=== PATIENT | female | born 1975 | race Caucasian/White ===

== ENCOUNTER 2022-09-25 16:28 | Emergency (ER) | payer OTHER ==
[2022-09-25 17:58] VITALS: RESP 18
[2022-09-25] MEDS ORDERED: ACETAMINOPHEN TAB 500 MG TAB PO STA (18:01)
[2022-09-25] MEDS ORDERED: ALBUTEROL NEBULIZED 2.5 MG/3 ML INHALATION STA ×2 (18:01→19:57)
[2022-09-25] MEDS ORDERED: methylPREDNISolone SOD SUCCI 125 MG/2 ML VIAL IM ONE (18:02)
--- NOTE | 2022-09-25 19:22 | XR ---
EXAMINATION TYPE: XR chest 2V DATE OF EXAM: 09/25/2022 COMPARISON: NONE HISTORY: Short of breath TECHNIQUE: 2 views FINDINGS: Heart and mediastinum are normal. Lungs are clear. Diaphragm is normal. Bony thorax is inta ct. IMPRESSION: Normal chest.
[2022-09-25 20:55] VITALS: BP 109/70; PULSE 87; TEMP 98.6
--- NOTE | 2022-09-25 21:09 | ED ---
URI HPI - General Chief Complaint: Upper Respiratory Infection Stated Complaint: Fever,Congestion Time Seen by Provider: 09/25/22 17:17 Source: patient Mode of arrival: wheelchair Limitations: no limitations - History of Present Illness Initial Comments: Patient is a 46-year-old female who presents to the emergency department with a chief complaint of fever. Patient reports fever, body aches, dry cough, congestion for the past 3 days. Denies recent sick contacts. Denies chest pain and shortness of breath. Patient has history of childhood asthma. - Related Data Previous Rx's Medication Instructions Recorded Albuterol Inhaler [Ventolin Hfa 1 puff INHALATION QID #8 gm 09/25/22 Inhaler] Fluticasone Nasal [place] [Flonase 2 spray EA NOSTRIL DAILY #16 gm 09/25/22 Nasal [place]] Allergies Allergy/AdvReac Type Severity Reaction Status Date / Time latex Allergy Rash/Hives Verified 09/25/22 16:53 Review of Systems ROS Statement: Those systems with pertinent positive or pertinent negative responses have been documented in the HPI. ROS Other: All systems not noted in ROS Statement are negative. Past Medical History Past Medical History: Asthma History of Any Multi-Drug Resistant Organisms: None Reported Past Surgical History: Cholecystectomy Past Psychological History: No Psychological Hx Reported Smoking Status: Never smoker Past Alcohol Use History: None Reported Past Drug Use History: Marijuana General Exam Limitations: no limitations General appearance: alert, in no apparent distress Head exam: Present: atraumatic, normocephalic, normal inspection Respiratory exam: Present: normal lung sounds bilaterally, wheezes. Absent: respiratory distress, rales, rhonchi, stridor Cardiovascular Exam: Present: regular rate, normal rhythm, normal heart sounds. Absent: systolic murmur, diastolic murmur, rubs, gallop, clicks Neurological exam: Present: alert, oriented X3, CN II-XII intact Psychiatric exam: Present: normal affect, normal mood Skin exam: Present: warm, dry, intact, normal color. Absent: rash Course Vital Signs 09/25/22 09/25/22 09/25/22 16:48 17:25 19:12 Temperature 101.4 F H 99.0 F Pulse Rate 88 85 Respiratory 16 18 18 Rate Blood Pressure 129/81 121/75 O2 Sat by Pulse 96 95 Oximetry 09/25/22 09/25/22 09/25/22 19:23 19:35 20:39 Temperature Pulse Rate 68 70 68 Respiratory Rate Blood Pressure O2 Sat by Pulse Oximetry 09/25/22 20:55 Temperature 98.6 F Pulse Rate 87 Respiratory 18 Rate Blood Pressure 109/70 O2 Sat by Pulse 98 Oximetry Medical Decision Making - Medical Decision Making This is a 46-year-old female presenting with upper respiratory symptoms. Patient well-appearing. No evidence of respiratory stress. No hypoxia. Patient does have wheezing. Febrile at 101.4 degrees Fahrenheit. Influenza A is detected. Patient given Tylenol, steroid, and multiple breathing treatments which improved wheezing. Fever resolved. Patient will be discharged with inhaler. Dr. Weiss is my attending. - Lab Data Lab Results 09/25/22 09/25/22 Range/Units 17:25 17:25 Coronavirus (PCR) Not Detected (Not Detectd) Influenza Type A RNA Detected H (Not Detectd) Influenza Type B (PCR) Not Detected (Not Detectd) Disposition Clinical Impression: Influenza Disposition: HOME SELF-CARE Condition: Good Instructions (If sedation given, give patient instructions): Upper Respiratory Infection (ED) Additional Instructions: Take medication as directed. Increase water intake. Return to the emergency department if you experience new, concerning, or worsening symptoms Prescriptions: Fluticasone Nasal [place] [Flonase Nasal [place]] 2 spray EA NOSTRIL DAILY #16 gm Albuterol Inhaler [Ventolin Hfa Inhaler] 1 puff INHALATION QID #8 gm Is patient prescribed a controlled substance at d/c from ED?: No Referrals: None,Stated [Primary Care Provider] - 1-2 days
== END 2022-09-25 21:24 | disposition home or self-care (01) ==
LOC: EC 16:28
DX: J11.1 Influenza due to unidentified influenza virus with other respiratory manifestations (principal); J45.909 Unspecified asthma, uncomplicated; F12.90 Cannabis use, unspecified, uncomplicated; Z91.040 Latex allergy status; Z20.822 Contact with and (suspected) exposure to COVID-19
CPT/HCPCS: 94640 ×2; 87502; 87635; 71046; 99284; 96372; J2930

== ENCOUNTER 2023-05-21 16:40 | Emergency (ER) | payer OTHER ==
[2023-05-21] MEDS ORDERED: MORPHINE SULFATE 4 MG/ML SYRINGE IVP STA (19:10)
[2023-05-21] MEDS ORDERED: methylPREDNISolone SOD SUCCI 125 MG/2 ML VIAL IV STA (19:48)
--- NOTE | 2023-05-21 20:17 | ED ---
General Adult HPI - General Chief complaint: Skin/Abscess/Foreign Body Stated complaint: lump on R side jaw Time Seen by Provider: 05/21/23 19:00 Source: patient Mode of arrival: ambulatory Limitations: no limitations - History of Present Illness Initial comments: 47-year-old female presenting with chief complaint of right-sided jaw pain and swelling. She states that when she woke up there was a small bump in the submandibular region and throughout the day the swelling and pain increased. Patient is having pain with swallowing but is still able to drink water. She is having no difficulty breathing. She states that the pain and swelling is also spreading up to her roman catholic. She states that she was febrile earlier with a temperature 100.8, she did take a Tylenol. - Related Data Previous Rx's Medication Instructions Recorded Albuterol Inhaler [Ventolin Hfa 1 puff INHALATION QID #8 gm 09/26/22 Inhaler] Fluticasone Nasal [place] [Flonase 2 spray EA NOSTRIL DAILY #16 gm 09/26/22 Nasal [place]] methylPREDNISolone Dose Pack 4 mg PO DIRECTED #21 tab 09/26/22 [Medrol Dose Pack] Clindamycin [Cleocin] 450 mg PO Q6H 10 Days #120 cap 05/21/23 Allergies Allergy/AdvReac Type Severity Reaction Status Date / Time latex Allergy Rash/Hives Verified 05/21/23 17:42 Review of Systems ROS Statement: Those systems with pertinent positive or pertinent negative responses have been documented in the HPI. ROS Other: All systems not noted in ROS Statement are negative. Past Medical History Past Medical History: Asthma History of Any Multi-Drug Resistant Organisms: None Reported Past Surgical History: Cholecystectomy Past Psychological History: No Psychological Hx Reported Smoking Status: Never smoker Past Alcohol Use History: None Reported Past Drug Use History: Marijuana General Exam Limitations: no limitations General appearance: alert, in no apparent distress Head exam: Present: atraumatic, normocephalic, normal inspection Eye exam: Present: normal appearance, EOMI Neck exam: Present: tenderness, lymphadenopathy. Absent: normal inspection Expanded Neck exam: Absent: midline deformity Respiratory exam: Present: wheezes. Absent: respiratory distress Cardiovascular Exam: Present: regular rate, normal rhythm, normal heart sounds. Absent: systolic murmur, diastolic murmur, rubs, gallop, clicks Neurological exam: Present: alert, oriented X3, CN II-XII intact Psychiatric exam: Present: normal affect, normal mood Skin exam: Present: warm, dry, intact, normal color. Absent: rash Course Vital Signs 05/21/23 05/21/23 05/21/23 17:39 18:19 19:00 Temperature 99.0 F 97.7 F Pulse Rate 81 78 75 Respiratory 20 22 20 Rate Blood Pressure 128/67 183/74 118/70 O2 Sat by Pulse 100 100 97 Oximetry 05/21/23 21:37 Temperature 98.9 F Pulse Rate 80 Respiratory 18 Rate Blood Pressure 127/67 O2 Sat by Pulse 97 Oximetry Medical Decision Making - Medical Decision Making Was pt. sent in by a medical professional or institution (, PA, SENIOR PL SQL DEVELOPER, urgent c are, hospital, or correction...) When possible be specific @ -No Did you speak to anyone other than the patient for history (EMS, parent, family, police, friend...)? What history was obtained from this source @ -No Did you review nursing and triage notes (agree or disagree)? Why? @ -I reviewed and agree with nursing and triage notes Were old charts reviewed (outside hosp., previous admission, EMS record, old EKG, old radiological studies, urgent care reports/EKG's, correction records)? Report findings @ -No old charts were reviewed Differential Diagnosis (chest pain, altered mental status, abdominal pain women, abdominal pain men, vaginal bleeding, weakness, fever, dyspnea, syncope, headache, dizziness, GI bleed, back pain, seizure, CVA, palpatations, mental health, musculoskeletal)? @ -Differential includes parotiditis, abscess, lymph node, Chip angina, dental abscess, this is not an all inclusive list EKG interpreted by me (3pts min.). @ -As above X-rays interpreted by me (1pt min.). @ -None done CT interpreted by me (1pt min.). @ -CT shows right parotiditis, no obstructing Stensen's duct stone visualized U/S interpreted by me (1pt. min.). @ -None done What testing was considered but not performed or refused? (CT, X-rays, U/S, labs)? Why? @ -None What meds were considered but not given or refused? Why? @ -None Did you discuss the management of the patient with other professionals (professionals i.e. , PA, SENIOR PL SQL DEVELOPER, lab, RT, psych nurse, oncology social work, magnetic tape typewriter operator, teacher, operations officer afloat, skilled nursing case manager)? Give summary @ -No Was smoking cessation discussed for >3mins.? @ -No Was critical care preformed (if so, how long)? @ -No Were there social determinants of health that impacted care today? How? (Homelessness, low income, unemployed, alcoholism, drug addiction, transportation, low edu. Level, literacy, decrease access to med. care, alf, rehab)? @ -No Was there de-escalation of care discussed even if they declined (Discuss DNR or withdrawal of care, Hospice)? DNR status @ -No What co-morbidities impacted this encounter? (DM, HTN, Smoking, COPD, CAD, Ca ncer, CVA, ARF, Chemo, Hep., AIDS, mental health diagnosis, sleep apnea, morbid obesity)? @ -None Was patient admitted / discharged? Hospital course, mention meds given and route, prescriptions, significant lab abnormalities, going to OR and other pertinent info. @ -47-year-old female presenting with chief complaint of pain and swelling to the right side of the neck that started today. She is having no difficulty breathing or swallowing, however she does admit to pain with swallowing. She is still able to eat and drink. Physical examination is conducted. Lab work shows WBC 19.8. CT shows parotiditis was no evidence of abscess. Patient will be started on clindamycin and is educated on using sour candy and Lebens to help stimulate salivary gland production.Follow-up with PCP. Report back to ER with any new or worsening symptoms. Discussed return parameters and answered all questions. Patient conveyed verbal understanding and agreed to the plan. I discussed this case in detail with my attending Dr. Black Undiagnosed new problem with uncertain prognosis? @ -No Drug Therapy requiring intensive monitoring for toxicity (Heparin, Nitro, Insulin, Cardizem)? @ -No Were any procedures done? @ -No Diagnosis/symptom? @ -Parotiditis Acute, or Chronic, or Acute on Chronic? @ -Acute Uncomplicated (without systemic symptoms) or Complicated (systemic symptoms)? @ -Uncomplicated Side effects of treatment? @ -No Exacerbation, Progression, or Severe Exacerbation? @ -No Poses a threat to life or bodily function? How? (Chest pain, [place], [place], pneumonia, PE, COPD, DKA, ARF, appy, cholecystitis, CVA, Diverticulitis, Homicidal, Suicidal, threat to staff... and all critical care pts) @ -Low likelihood - Lab Data Result diagrams: 05/21/23 20:06 05/21/23 20:06 Lab Results 05/21/23 05/21/23 05/21/23 Range/Units 20:06 20:06 20:06 WBC 19.8 H (3.8-10.6) k/uL RBC 4.42 (3.80-5.40) m/uL Hgb 12.1 (11.4-16.0) gm/dL Hct 37.0 (34.0-46.0) % MCV 83.6 (80.0-100.0) fL MCH 27.3 (25.0-35.0) pg MCHC 32.6 (31.0-37.0) g/dL RDW 14.5 (11.5-15.5) % Plt Count 381 (150-450) k/uL MPV 7.8 Neutrophils % 87 % Lymphocytes % 8 % Monocytes % 4 % Eosinophils % 1 % Basophils % 0 % Neutrophils # 17.2 H (1.3-7.7) k/uL Lymphocytes # 1.5 (1.0-4.8) k/uL Monocytes # 0.7 (0-1.0) k/uL Eosinophils # 0.1 (0-0.7) k/uL Basophils # 0.1 (0-0.2) k/uL Sodium 138 (137-145) mmol/L Potassium 3.8 (3.5-5.1) mmol/L Chloride 106 (98-107) mmol/L Carbon Dioxide 24 (22-30) mmol/L Anion Gap 8 mmol/L BUN 6 L (7-17) mg/dL Creatinine 0.59 (0.52-1.04) mg/dL Est GFR (CKD-EPI)AfAm >90 (>60 ml/min/1.73 sqM) Est GFR (CKD-EPI)NonAf >90 (>60 ml/min/1.73 sqM) Glucose 118 H (74-99) mg/dL Plasma Lactic Acid Chip 1.3 (0.7-2.0) mmol/L Calcium 9.1 (8.4-10.2) mg/dL Total Bilirubin 0.7 (0.2-1.3) mg/dL AST 19 (14-36) U/L ALT 13 (4-34) U/L Alkaline Phosphatase 94 (38-126) U/L Total Protein 7.7 (6.3-8.2) g/dL Albumin 4.1 (3.5-5.0) g/dL Disposition Clinical Impression: Parotiditis Disposition: HOME SELF-CARE Condition: Good Instructions (If sedation given, give patient instructions): Sialoadenitis (ED) Additional Instructions: Follow-up with PCP in one to 2 days, suggestions provided. Report back to ER with any new or worsening symptoms. Take antibiotics as prescribed. Alternate Motrin and Tylenol as needed for pain control. Use Sour candy and lemon to help stimulate the salivary glands. Prescriptions: Clindamycin [Cleocin] 450 mg PO Q6H 10 Days #120 cap Is patient prescribed a controlled substance at d/c from ED?: No Referrals: None,Stated [Primary Care Provider] - 1-2 days Janki Stein MD [STAFF PHYSICIAN] - 1-2 days Sandra Palmer MD [STAFF PHYSICIAN] - 1-2 days Sandra Bowman MD [STAFF PHYSICIAN] - 1-2 days Time of Disposition: 21:02
[2023-05-21 20:22] LABS: Basophils # (A) 0.1 k/uL (0-0.2); Basophils % (A) 0 %; Eosinophils # (A) 0.1 k/uL (0-0.7); Eosinophils % (A) 1 %; HGB 12.1 gm/dL (11.4-16.0); Lymphocytes # (A) 1.5 k/uL (1.0-4.8); Lymphocytes % (A) 8 %; MCH 27.3 pg (25.0-35.0); MCHC 32.6 g/dL (31.0-37.0); MCV 83.6 fL (80.0-100.0); Mean Platelet Volume 7.8; Monocytes # (A) 0.7 k/uL (0-1.0); Monocytes % (A) 4 %; Neutrophils # (A) 17.2 k/uL (1.3-7.7); Neutrophils % (A) 87 %; Platelet Count 381 k/uL (150-450); RBC 4.42 m/uL (3.80-5.40); RDW 14.5 % (11.5-15.5); WBC 19.8 k/uL (3.8-10.6)
[2023-05-21 20:33] LABS: ALT 13 U/L (4-34); AST 19 U/L (14-36); African American GFR (CKD) >90 (>60 ml/min/1.73 sqM); Albumin 4.1 g/dL (3.5-5.0); Alkaline Phosphatase 94 U/L (38-126); Anion Gap 8 mmol/L; Blood Urea Nitrogen 6 mg/dL (7-17); Calcium 9.1 mg/dL (8.4-10.2); Carbon Dioxide 24 mmol/L (22-30); Chloride 106 mmol/L (98-107); Glucose 118 mg/dL (74-99); Non-African American GFR(CKD) >90 (>60 ml/min/1.73 sqM); Potassium 3.8 mmol/L (3.5-5.1); Sodium 138 mmol/L (137-145); Total Bilirubin 0.7 mg/dL (0.2-1.3); Total Protein 7.7 g/dL (6.3-8.2)
--- NOTE | 2023-05-21 20:42 | CT ---
EXAMINATION TYPE: CT soft tissue neck w con CT DLP: 473.2 mGycm, Automated exposure control for dose reduction was used. DATE OF EXAM: 05/21/2023 8:29 PM COMPARISON: None. CLINICAL INDICATION:Female, 47 years old with history of R sided jaw swelling, R sided jaw pain, and swelling that started today and is progressively worsening TECHNIQUE: Standard enhanced CT of the neck. Axial sections with coronal and sagittal reformats were obtained. Contrast used:100ml mL of Isovue 300 with IV Contrast, Oral contrast used: none. FINDINGS: Brain: Visualized portions are grossly unremarkable. Orbits: Unremarkable Sinuses: Grossly unremarkable. Spaces of the neck: There is asymmetric fat stranding changes around the right parotid gland with segun matous gland itself. Multiple intraglandular lymph nodes are seen bilaterally right greater than left . Single calcific densities within the gland not within the duct measuring up to 2 mm. No organizing fluid collection suggest abscess. The lingual tonsils are enlarged. Musculoskeletal: No acute osseous pathology. Lymph nodes: Multiple nonenlarged lymph nodes are seen along both anterior chains of the neck. Vascular structures: Visualized major arteries are patent without evidence of aneurysm. Thoracic Inlet/airway: Airway is patent. The lung apices are clear. Soft tissues/Thyroid: Thyroid and remainder of the soft tissues are unremarkable. Other: none. IMPRESSION Right parotiditis, no obstructing Stensen's duct stone visualized.
[2023-05-21] MEDS ORDERED: CLINDAMYCIN 150 MG CAP PO STA (20:57)
[2023-05-21 21:50] VITALS: BP 127/67; PULSE 80; RESP 18; TEMP 98.9
== END 2023-05-21 21:50 | disposition home or self-care (01) ==
LOC: EC 16:40
DX: K11.20 Sialoadenitis, unspecified (principal); J45.909 Unspecified asthma, uncomplicated; F12.90 Cannabis use, unspecified, uncomplicated; Z91.040 Latex allergy status; Z90.49 Acquired absence of other specified parts of digestive tract
CPT/HCPCS: 36415; 80053; 83605; 85025; 70491; 99284; 96374; 96375; J2270; J2930; Q9967